=== PATIENT | male | born 1935 | race Caucasian/White ===

== ENCOUNTER 2018-03-12 15:42 | Inpatient (IN) | payer OTHER ==
[~2018-03-12] VITALS: Ht 167.6 cm; Wt 78.5 kg
[~2018-03-12 15:42] MED LIST: CARVEDILOL25 M1 PO; CLONIDINE HCL0.2 MG PO; COLACE100 MG PO; FLEXERIL10 MG PO; FUROSEMIDE20 MG PO; GLYBURIDE MICRO1 TA1 PO; HYDRALAZINE HYD50 MG PO; LISINOPRIL40 MG PO; MELOXICAM7.5 M1 PO; SIMVASTATIN20 M1 PO; VITAMIN-D1000 IU PO
[2018-03-12] MEDS ORDERED: APAP/HYDROCODON1 T13 (16:12)
[2018-03-12] MEDS ORDERED: GABAPENTIN300 M4 (16:15)
[2018-03-12] MEDS ORDERED: COLACE100 MG (16:16)
[2018-03-12] MEDS ORDERED: GOOD SENSE OMEP20 MG (16:16)
[2018-03-12 16:31] LABS: BASOPHIL % 0.3 % (0-2); PLATELET COUNT 263 x10^3mcL (130-400); RED CELL DISTRIBUTION WIDTH 13.7 % (11.5-14.5)
[2018-03-12 16:39] LABS: CALCIUM 9.1 mg/dL (8.5-10.1); CARBON DIOXIDE 31.1 mmol/L (21-32); CHLORIDE SERUM 102 mmol/L (98-107); CREATININE SERUM 1.4 mg/dL (0.7-1.3); GLUCOSE SERUM 178 mg/dL (74-106); POTASSIUM SERUM 3.7 mmol/L (3.5-5.1); SODIUM SERUM 137 mmol/L (136-145)
[2018-03-12 16:44] LABS: ALBUMIN 3.7 g/dL (3.4-5.0); ALKALINE PHOSPHATASE 91 U/L (46-116); ALT/SGPT 37 U/L (16-63); AST/SGOT 14 U/L (15-37); BILIRUBIN TOTAL 0.39 mg/dL (0.20-1.00); CHOLESTEROL 165 mg/dL (<200); HDL CHOLESTEROL 52 mg/dL (40-60); TOTAL PROTEIN, SERUM 7.7 g/dL (6.4-8.2)
[2018-03-12 20:00] LABS: T3 TOTAL 1.17 ng/mL
[2018-03-12 20:03] LABS: CHOLESTEROL/HDL RATIO 3.2; FREE T4 0.97 ng/dL (0.76-1.46); FREE THYROXINE INDEX 2.9 ug/dL (1.4-4.5); MAGNESIUM 1.5 mg/dL (1.8-2.4); PHOSPHOROUS 3.9 mg/dL (2.5-4.9); T4(THYROXINE) 8.9 ug/dL (4.7-13.3)
[2018-03-12 20:19] VITALS: BP 115/65
[2018-03-12 20:25] VITALS: Ht 167.6 cm; Wt 78.5 kg
[2018-03-13 03:01] LABS: UA SPECIFIC GRAVITY <=1.005 (1.005-1.035); microscopic required? YES; urine erythrocyte 1+ (NEGATIVE)
[2018-03-13 05:14] VITALS: BP 143/73
[2018-03-13 06:56] LABS: BASOPHIL % 0.5 % (0-2); CALCIUM 9.5 mg/dL (8.5-10.1); CARBON DIOXIDE 26.8 mmol/L (21-32); CHLORIDE SERUM 103 mmol/L (98-107); CREATININE SERUM 1.1 mg/dL (0.7-1.3); GLUCOSE SERUM 151 mg/dL (74-106); MAGNESIUM 1.4 mg/dL (1.8-2.4); PLATELET COUNT 207 x10^3mcL (130-400); POTASSIUM SERUM 4.1 mmol/L (3.5-5.1); RED CELL DISTRIBUTION WIDTH 13.7 % (11.5-14.5); SODIUM SERUM 139 mmol/L (136-145)
[2018-03-13 09:19] VITALS: BP 142/64
[2018-03-13 11:47] VITALS: BP 125/70
[2018-03-13 17:15] VITALS: BP 125/70
[2018-03-13] MEDS ORDERED: CARVEDILOL25 M1 PO (17:16)
[2018-03-13] MEDS ORDERED: FUROSEMIDE20 MG PO (17:21)
[2018-03-13] MEDS ORDERED: MAG PO (17:22)
[2018-03-13 19:58] VITALS: BP 126/70
== END 2018-03-13 20:15 | disposition home or self-care (01) | DRG 73 ==
LOC: ED 15:42 → DU 19:29
PROVIDERS: Emergency Medicine; Family Medicine
DX: G90.8 Other disorders of autonomic nervous system (principal); N17.0 Acute kidney failure with tubular necrosis; E83.42 Hypomagnesemia; E11.65 Type 2 diabetes mellitus with hyperglycemia; I10 Essential (primary) hypertension; K21.9 Gastro-esophageal reflux disease without esophagitis; E78.1 Pure hyperglyceridemia; E78.5 Hyperlipidemia, unspecified; Z79.82 Long term (current) use of aspirin; Z79.4 Long term (current) use of insulin; Z68.28 Body mass index [BMI] 28.0-28.9, adult; Z79.84 Long term (current) use of oral hypoglycemic drugs
CPT/HCPCS: 82962; 83880; 84439; J3475; Q0092